=== PATIENT | female | born 1990 | race Caucasian/White ===

== ENCOUNTER 2020-10-13 17:01 | Outpatient (CLI) | payer OTHER, SELFPAY ==
[2020-10-13 19:35] LABS: Hemoglobin A1C 4.8 % (<5.7)
[2020-10-16 06:13] LABS: FSH 5.1 mIU/mL (***); LH 9.4 mIU/mL (***); Progesterone <0.2 ng/mL (***); Prolactin 13.6 ng/mL (***)
[2020-10-16 09:38] LABS: Testosterone Total 63 ng/dL (2-45)
[2020-10-16 18:17] LABS: Sex Hormone Binding Globulin 21 nmol/L (17-124)
[2020-10-18 23:06] LABS: Estradiol, Ultrasensitive 54 pg/mL
== END 2020-10-13 17:02 | disposition home or self-care (01) ==
LOC: ANHLAB 17:06
PROVIDERS: Visit Provider Obstetrics & Gynecology
DX: L68.0 Hirsutism (principal)
CPT/HCPCS: 36415; 82670; 83001; 83002; 83036; 84144; 84146; 84270; 84403; 84443

== ENCOUNTER 2022-04-23 10:50 | Emergency (ER) | payer OTHER, SELFPAY ==
--- NOTE | ~2022-04-23 | XR_ITS ---
XR foot LT min 3V DATE: 04/23/2022 11:46 INDICATION: Pain, tenderness to palpation over third metatarsal bone TECHNIQUE: 4 views COMPARISON: None FINDINGS: No fracture or dislocation, periosteal reaction or bone destruction. Joint spaces are prese rved. IMPRESSION: Negative Reviewed, dictated and finalized at location B. IMPRESSION: Negative
[2022-04-23 10:52] VITALS: BP 141/88; PULSE 90; RESP 16; TEMP 36.7; O2SAT 97
--- NOTE | 2022-04-23 11:23 | ED.LOWEXIN ---
HPI - Extremity Injury (Lower) General Chief Complaint: Extremity Injury, Lower Stated Complaint: L foot pain Time Seen by Provider: 04/23/22 11:14 History of Present Illness HPI Narrative: Patient is a 32-year-old female here for evaluation of atraumatic left foot pain over the past day. Patient states the pain started yesterday as a dull ache, and today became sharp and shooting. Pain is there all the time but is worse with movement of the foot and bearing weight. denies any trauma to the area or increased exertion recently. She has been walking on the foot with moderate pain. she denies any numbness or tingling in her foot. She has taken ibuprofen with mild relief of her symptoms. Denies any nausea, vomiting, fevers, chills. Related Data Allergies Allergy/AdvReac Type Severity Reaction Status Date / Time No Known Allergies Allergy Verified 04/23/22 10:55 Review of Systems Review of Systems: Gen: Denies fevers or chills Eyes: Denies eye pain or visual change ENT: Denies congestion Respiratory: Denies shortness of breath or cough CV: Denies chest pain or palpitations GI: Denies abdominal pain nausea, emesis or diarrhea denies burning, urgency, frequency or hematuria Musculoskeletal: Reports left foot pain. Neuro: Denies numbness, tingling, weakness or focal weakness Skin: Denies rash Except as documented, all other systems reviewed and negative [facility] Family History Family History (Updated 04/13/16 @ 23:19 by DOCTOR UNKNOWN) Father Family history of diabetes mellitus in first degree relative Mother Family history of malignant neoplasm of breast in first degree relative Social History Social History Smoking status: Never smoker Alcohol intake: never Exam Narrative: APPEARANCE: Well appearing, no pain in distress, well-nourished. Head: Normocephalic and atraumatic. EYES: PERRLA/EOMI, conjunctivae clear NOSE: No nasal drainage EARS: External ear normal in appearance THROAT: Oropharynx is clear. Mucous membranes are moist. NECK: Supple. No adenopathy, no masses. RESPIRATORY: Airway patent, respirations nonlabored. Clear to auscultation bilaterally, no rales, rhonchi, wheezing. CARDIOVASCULAR: 2+ DP and PT pulses. regular rate and rhythm without murmurs, rubs, or gallops. ABDOMINAL: Normoactive bowel sounds. Soft, nontender, nondistended. No rebound tenderness or guarding. MUSCULOSKELETAL: Mild amount of bruising over her left anterior ankle. She is tender to palpation over the distal second and third metatarsals. She has full range of motion in the foot, but does note pain with plantar flexion against resistance. No bony tenderness over left knee; FROM in left knee. No edema. NEURO: Normal speech. No focal neurologic deficits. SKIN: Skin is warm and dry. No rashes. PSYCHIATRIC: Normal affect/mood. Course Vital Signs Vital signs: Vital Signs Temperature 98.1 F 04/23/22 10:52 Pulse Rate 90 04/23/22 10:52 Respiratory Rate 16 04/23/22 10:52 Blood Pressure 141/88 H 04/23/22 10:52 Pulse Oximetry 97 04/23/22 10:52 Oxygen Delivery Room Air 04/23/22 10:52 Temperature 98.1 F 04/23/22 10:52 Pulse Rate 90 04/23/22 10:52 Respiratory Rate 16 04/23/22 10:52 Blood Pressure 141/88 H 04/23/22 10:52 Pulse Oximetry 97 04/23/22 10:52 Oxygen Delivery Room Air 04/23/22 10:52 MDM - Extremity Injury (Lower) MDM Narrative Medical decision making narrative: 32-year-old female here for evaluation of atraumatic left foot pain for the past several days. No obvious deformity on exam, tender to palpation over distal 2nd-3rd metatarsals. No pain with passive range of motion to suggest septic arthritis. No calf pain, leg swelling or tenderness to suggest DVT; wells low risk. Location of pain and history not consistent with gout. Plain films of the foot negative. Her pain improved after Tylenol and ibuprofen. Encouraged to follow-up with her PCP this week for further evaluat
== END 2022-04-23 13:21 | disposition home or self-care (01) ==
PROVIDERS: Emergency Provider Emergency Medicine
DX: M79.672 Pain in left foot (principal)
CPT/HCPCS: 73630; 99283

== ENCOUNTER 2022-08-12 18:17 | Emergency (ER) | payer OTHER, SELFPAY ==
[2022-08-12 18:24] VITALS: BP 124/61; PULSE 99; RESP 16; TEMP 37.1; O2SAT 96
--- NOTE | 2022-08-12 18:51 | ED.URI ---
HPI - URI/Sore Throat General Chief Complaint: Upper Respiratory Infection Stated Complaint: fever congestion runny nose Source: patient Mode of arrival: ambulatory Limitations: no limitations History of Present Illness HPI Narrative: 32-year-old female presents to [facility] with complaints of cough, congestion, runny nose intermittent fevers for the past 2 days. Patient reports that her son recently started with similar symptoms. Patient denies shortness of breath, wheezing, nausea, vomiting, diarrhea, ear pain or sore throat. The patient is a nonsmoker. Patient denies recent travel MD elicited complaint: fever, cough, rhinorrhea and nasal congestion Onset (ago): day(s) (2) Severity: mild Able to tolerate fluids by mouth: Yes Context: sick contacts Treatments prior to arrival: ibuprofen Related Data Allergies Allergy/AdvReac Type Severity Reaction Status Date / Time No Known Allergies Allergy Verified 04/23/22 10:55 Review of Systems Constitutional: Constitutional: Reports chills, Denies fatigue and Reports fever(s) ENT: Denies vertigo and Denies dizziness Cardiovascular: Cardiovascular: Denies chest pain Respiratory: Respiratory: Reports cough, Denies dyspnea and Denies wheezing Gastrointestinal: Gastrointestinal: Denies diarrhea, Denies nausea and Denies vomiting Musculoskeletal: Musculoskeletal: Denies arthralgias and Denies joint swelling Integumentary/Breasts: Skin/Breast: Denies rash Neurologic: Denies dizziness and Denies syncope Allergic/Immunologic: Allergic/Immunologic: Denies throat swelling, Denies tongue swelling and Denies wheezing [facility] Family History Family History Father Family history of diabetes mellitus in first degree relative Mother Family history of malignant neoplasm of breast in first degree relative Social History Social History Smoking status: Never smoker Alcohol intake: never Comments At time of signature, I agree with nursing past medical, surgical, social and family history. There is no relevant family history pertinent to the presenting complaint. Exam Const: General: healthy appearing, no acute distress and alert Nutritional Appearance: well nourished Orientation/consciousness: patient oriented x3 Limitations: no limitations HENMT: Head: normal to inspection Ears: external ears normal and TM's normal bilaterally Face/Nose/Sinus: Normal external nose present and Normal nares present Face and sinus: normal facial exam Mouth: Yes Normal oral and palatal mucosa present, Yes lip normal and Yes moist mucous membranes Teeth and gingiva: dentition normal Throat: posterior oropharynx normal and uvula midline Eyes: Conjunctivae: conjunctivae normal Neck: Neck: normal visual inspection and no lymphadenopathy Resp: Effort & Inspection: normal respiratory effort and not labored Auscultation: clear to auscultation bilaterally, no crackles, no rales and no rhonchi Cardio: Rate: regular rate Rhythm: regular rhythm Heart sounds: no murmurs Skin: General skin exam: normal color Rashes: no rashes Neuro: General: patient oriented x3 Speech: normal speech Gait exam (Neuro): Normal gait present Psych: Affect: normal affect Attitude: cooperative Course Course Level of Care: Express Care Visit Vital Signs Vital signs: Vital Signs Temperature 37.1 C 08/12/22 18:24 Pulse Rate 99 08/12/22 18:24 Respiratory Rate 16 08/12/22 18:24 Blood Pressure 124/61 08/12/22 18:24 Pulse Oximetry 96 08/12/22 18:24 Oxygen Delivery Room Air 08/12/22 18:24 Temperature 37.1 C 08/12/22 18:24 Pulse Rate 99 08/12/22 18:24 Respiratory Rate 16 08/12/22 18:24 Blood Pressure 124/61 08/12/22 18:24 Pulse Oximetry 96 08/12/22 18:24 Oxygen Delivery Room Air 08/12/22 18:24 MDM - URI/Sore Throat MDM Narrative Medical decision making
== END 2022-08-12 19:00 | disposition home or self-care (01) ==
PROVIDERS: Emergency Provider Nurse Practitioner Family
DX: J10.1 Influenza due to other identified influenza virus with other respiratory manifestations (principal)
CPT/HCPCS: 87804; 99213; G0463

== ENCOUNTER 2023-01-23 14:11 | Outpatient (CLI) | payer OTHER, SELFPAY | END 2023-01-23 14:12 | disposition home or self-care (01) | LOC: ANHSURGERY 14:14 | PROVIDERS: Visit Provider Obstetrics & Gynecology | DX: N92.0 Excessive and frequent menstruation with regular cycle (principal) | CPT/HCPCS: 36415; 86850; 86900; 86901 ==

== ENCOUNTER 2023-01-30 00:23 | Day surgery (SDC) | payer OTHER, SELFPAY ==
[2023-01-22 13:40] VITALS: BMI 34.4
--- NOTE | 2023-01-22 13:43 | PC.NURSE ---
Report to the Outpatient Waiting Room, entrance under the green pavilion located off [facility], at time 6:00 on date 01/30/23. Planned Procedure Time: 7:30. Time changes happen often and if your time is changed the preop area will call you the afternoon before. - You and your visitor will be asked to self-screen and do not enter if you have any COVID symptoms. - A mask is optional within the hospital at this time. Patients may have clear liquids (water, carbonated beverages, clear teas, apple juice) until 3 hours prior to surgery (4:30) with a maximum of 20 ounces. - No food from midnight until time of surgery Take the following medications with a SIP of water the morning of surgery: NONE DO NOT STOP ANY OF YOUR OTHER PRESCRIPTION MEDICATIONS PRIOR TO SURGERY EXCEPT THE FOLLOWING Medications to discontinue per physician: N/A Date to take last dose: N/A Please no make-up, nail azerbaijani, hairspray, perfume, deodorant, or body powder the day of surgery. No jewelry (including any body piercings) or valuables the day of surgery, leave them at home. Please take a shower or bath the night before, or the morning of, surgery with an antibacterial soap. Wear comfortable, loose fitting clothing. - Jewelry must be removed prior to entering the operating room. Rings and piercings that are not removed may be cut off. - The hospital will not accept responsibility for valuables. - Please leave all valuables, including medications, at home the day of surgery. If you are going home after surgery, a licensed coach tour driver must drive you home. - NO public transportation without another adult if you receive anesthesia. - We recommend that an adult stay with you for 24 hours following discharge. - We also recommend that you do not drive, make important decision, drink alcoholic beverages, or take any drugs that were not prescribed by your health care provider for at least 24 hours after your discharge time. Follow any additional instructions given to you from your surgeon. If you or anyone in your household have experienced Covid symptoms in the past week, please notify your surgeon or the nurse liaison at the phone number below for possible testing. Telephone instructions given to PT - ENRIQUE LOPEZ and asked if any additional questions and then verbalized understanding. Patient advised to call surgeon office or pre surgery nurse liaison [phone] if any additional questions.
--- NOTE | 2023-01-29 13:44 | WPDANESEPPF ---
Anes - Initial Pre Proc Eval Procedure: Operation Date: 01/30/23 08:15 Proposed Procedures p Total Laparoscopic Hysterectomy with Bilateral Salpingectomy - Roberto Rm MD Date/Time: 01/29/23 13:44 Surgeon: Roberto Rm MD Pre Op Diagnosis: menorrhagia Patient Data Age: 33 Gender: F Height: 1.7 m Weight: 99.8 kg Allergies Allergy/AdvReac Type Severity Reaction Status Date / Time No Known Allergies Allergy Verified 01/30/23 06:13 Home Medications Medication Instructions Recorded Confirmed Type sertraline 50 mg tablet 50 mg PO HS 01/22/23 01/22/23 History spironolactone 100 mg tablet 100 mg PO HS PCOS 01/22/23 01/22/23 History Patient hx anesthesia problems: none Family hx anesthesia problems: none Results Review: All pre-operative results and documents have been reviewed as part of the pre-operative evaluation. [facility] Past Medical History Medical History (Updated 01/29/23 @ 13:50 by Davonte Lennon MD) Abnormal uterine bleeding Anxiety Depression Obesity Family History Family History Father Family history of diabetes mellitus in first degree relative Mother Family history of malignant neoplasm of breast in first degree relative Social History Social History Smoking status: Never smoker Alcohol intake: never Substance use: never Substance use type: does not use Living arrangements: with family Spiritual care concerns: No Anes - Eval Final PreProcedure Day of Procedure 01/29/23 13:44 Patient weight: obese Heart: regular rate and rhythm Lungs: clear to auscultation and normal air movement Airway: Mallampati scale class II Neurological: alert and oriented Last oral intake: >/= 8 hours ASA classification: II Emergent: no Anesthetic plan: proceed Anesthesia type and monitoring: general ETT Results Review: All pre-operative results and documents have been reviewed as part of the pre-operative evaluation. Informed Consent: The patient's anesthetic plan and its attendant risks and benefits were discussed with the patient/family/POA. Questions were solicited and answers provided to the satisfaction of the patient/family/POA.
[2023-01-30] VITALS (9 sets, daily range): BP systolic 113–139; BP diastolic 56–90; PULSE 67–105; RESP 12–18; TEMP 36.4–37.3; O2SAT 94–100; BMI 33.7
[2023-01-30] MEDS: LACTATED RINGERS 1,000 ML 30 ML IV CONT ×2 (06:35→10:17)
[2023-01-30] MEDS: KETOROLAC 15 MG/ML VIAL (*BKC) IV PUSH (06:43)
[2023-01-30] MEDS: ACETAMINOPHEN 500 MG TABLET 1000 MG PO (06:43)
--- NOTE | 2023-01-30 07:12 | WPDHPUPDATE1 ---
History and Physical Update Update Date/Time: 01/30/23 07:12 History and Physical has been reviewed, including an updated exam of the patient. There are NO changes in the patient's condition. Risks, benefits, and alternatives have been discussed and questions answered. Patient agrees to proceed with procedure.
[2023-01-30] MEDS: ceFAZolin 2 GM/D5W 50 ML 2 GM/50 ML BAG IVPB (08:23)
[2023-01-30] MEDS: ceFAZolin SODIUM 1 GM VIAL (09:01)
--- NOTE | 2023-01-30 10:05 | P.OP_ITS ---
Procedure Note - Detailed Date of Procedure 01/30/23 Pre-op Diagnosis menorrhagia Post-op Diagnosis Same Procedure Performed Total laparoscopic hysterectomy. Surgeon Roberto Rm MD Anesthesia General Indications Menorrhagia, dysmenorrhea Findings Normal-appearing pelvic anatomy with mildly enlarged uterus, normal-appearing ovaries and tubes. Description of Procedure This patient was taken to the operating room. She was prepped and draped in the dorsal lithotomy position after induction of general anesthesia. The uterine manipulator and Kerline cup were placed. This was done with a speculum and tenaculum. The speculum was placed. The cervix was grasped with a tenaculum. The stay sutures were placed at 3 and 9:00 a.m.. The stay sutures of 0 Vicryl were brought through the appropriately sized Kerline cup. The tip of the HANSA manipulator was placed in the intrauterine cavity. The cup was slid into place around the cervix and into the fornices. It was locked into place. The sutures were then wrapped around the handle and tied under tension. A 5 mm skin incision was made in the left upper quadrant the abdomen. A 5 mm trocar was inserted into the intrauterine cavity under direct visualization of the scope. Pneumoperitoneum was achieved. A left lower quadrant 11 mm incision was made with scalpel. An 11 mm trocar was inserted into the anterior abdominal cavity under direct visualization the scope. A 5 mm infraumbilical incision was made with a scalpel and a 5 mm trocar was inserted the intra-abdominal cavity under direct visualization of the scope. Bilateral ureteral lysis was performed. This was done from the pelvic brim down to the uterine artery. This was done with careful dissection using sharp and blunt dissection. The fallopian tubes were removed bilaterally. The me sosalpinx around the fallopian tubes were cauterized transected with LigaSure cautery. This was done in a bilateral fashion from the ovary to the uterine cornua. The fallopian tube was transected at the uterine cornu and amputated. The tube was taken out the left lower quadrant trocar site. In a stepwise fashion along the lateral aspects of the uterus the round ligament and broad ligaments were cauterized transected down to the level of the uterine arteries. A bladder flap was created in the bladder was moved distally to the end of the cervix and over the Kerline cup. The bilateral uterine arteries were cauterized and transected. Colpotomy was then performed. In a circumferential fashion the vagina was transected using unipolar cautery. The incision was made down on the Kerline cup. The uterus and cervix were taken out through the vagina. A pneumo occluder was placed in the vagina. The vaginal cuff was closed with a 0 V lock suture in a running fashion. The pelvis was irrigated with copious amounts antibiotic irrigation. The ureters were again examined and found to be intact and flowing freely under the uterine arteries into the bladder. The bladder was intact. It was examined directly. The vagina was irrigated with Betadine solution after removal of the Pneumo occluder. The patient was taken to recovery room. She was stable condition. Sponge lap and needle counts were correct x2. Estimated Blood Loss 50 Drains Yes Packing No Pathology Yes Complications No immediate complications Condition Stable Disposition Floor
[2023-01-30] MEDS: fentaNYL CITRATE INJ (*CRX) 100 MCG/2 ML VIAL 25 MCG IV PUSH ×4 (10:28→10:43)
--- NOTE | 2023-01-30 11:05 | ADMGEN ---
This patient, Chery Diaz, was admitted to OB 2nd Floor Room 289-00. Patient/family oriented to hospital policies and general routines including ID bracelet, bed and alarms, visiting hours, pain management, procedures, bathroom and other care routines, personal items, smoking policy, room service/diet, and visiting hours. Information on how to activate the Rapid Response Team has been discussed. Patient/Family are encouraged to report perceived risks to care and to ask questions if they do not understand what they are told or what they should do.
[2023-01-30] MEDS: DEXTROSE 5%/0.45% SOD CHL 1,000 ML 125 ML IV CONT (11:36)
[2023-01-30] MEDS: KETOROLAC 30 MG/ML VIAL (*BKC) IV PUSH (12:19)
[2023-01-30] MEDS: HYDROcodone/acetaminophen (*CRX) 10-325 MG TABLET 1 TAB PO ×2 (13:02→20:32)
[2023-01-30] MEDS: HYDROcodone/acetaminophen (*CRX) 5-325 MG TABLET 1 TAB PO (16:36)
[2023-01-30] MEDS: IBUPROFEN 600 MG TABLET PO (19:20)
[2023-01-30] MEDS: SPIRONOLACTONE 50 MG TABLET 100 MG PO (20:32)
[2023-01-30] MEDS: SERTRALINE HCL 50 MG TABLET PO (20:32)
[2023-01-31 04:00] VITALS: BP 102/61; PULSE 99; RESP 16; TEMP 36.4; O2SAT 95
[2023-01-31] MEDS: IBUPROFEN 600 MG TABLET PO (04:00)
[2023-01-31] MEDS: HYDROcodone/acetaminophen (*CRX) 5-325 MG TABLET 1 TAB PO ×2 (04:00→07:30)
[2023-01-31 05:10] LABS: Basophils Percent Auto 0.1 % (0.2-1.2); Hematocrit 40.7 % (37.0-47.0); Hemoglobin 13.6 g/dL (12.0-15.0); Immature Granulocyte Absolute 0.14 K/mm3 (0.00-0.031); Immature Granulocyte Percent A 0.7 % (0-0.5); Lymphocytes Absolute Auto 2.28 K/mm3 (0.9-3.2); Lymphocytes Percent Auto 11.2 % (18.3-44.2); Mean Corpuscular HGB Conc 33.4 g/dl (32-36); Mean Corpuscular Hemoglobin 29.8 pg (26-34); Mean Corpuscular Volume 89.3 fl (80-100); Mean Platelet Volume 9.9 fl (7.4-10.4); Monocytes Absolute Auto 0.9 K/mm3 (0.1-0.6); Monocytes Percent Auto 4.6 % (2.6-8.5); Neutrophils Absolute Auto 16.9 K/mm3 (1.3-6.7); Neutrophils Percent Auto 83.4 % (45.5-73.1); Platelet Count Result 329 k/mm3 (150-375); Red Blood Count 4.56 M/mm3 (4.2-5.4); Red Cell Distribution Width 12.7 % (11.5-14.5); White Blood Count 20.3 K/mm3 (4.5-10.0)
--- NOTE | 2023-01-31 08:04 | PM.GYNPNOP ---
DIRECTOR FAMILY - A/P Postoperative Procedures: Procedures Operation Date: 01/30/23 08:15 Actual Procedure Side Surgeon p Total Laparoscopic Hysterectomy with Bilateral Salpingectomy Bilateral Roberto Rm MD Postoperative day: 1 Postoperative status: doing well Postoperative plan: see orders Time Spent With Patient Time: Total time spent is greater than 50% in coordination of care (as documented) at patient's floor/unit and/or counseling patient: Time with patient: less than 15 minutes DIRECTOR FAMILY- PN:Subj Post-Op Subjective Date/time seen: 01/31/23 08:04 Subjective: patient reports feeling better, patient has no complaints and pain is well controlled Exam Const: General: healthy appearing, comfortable and no acute distress Resp: Auscultation: clear to auscultation bilaterally, no rales, no rhonchi and no wheezes Cardio: Rate: regular rate Heart sounds: no click, no murmurs and no rubs GI: Inspection: non-distended Auscultation: normal bowel sounds Extrem: General: normal to inspection, no pedal edema and no calf tenderness DIRECTOR FAMILY - PN: Obj Data Vital Signs Vital Signs: Vital Signs - 24 hr 01/30/23 10:09 01/30/23 10:20 01/30/23 10:35 Temperature 99.2 F 98.4 F Pulse Rate 77 72 73 Respiratory Rate 16 18 12 Blood Pressure 117/90 129/82 125/80 Pulse Oximetry 96 100 95 Oxygen Delivery Simple Face Mask Simple Face Mask Room Air Oxygen Flow Rate 10 10 01/30/23 10:50 01/30/23 11:30 01/30/23 11:05 Temperature 98.3 F Pulse Rate 72 75 Respiratory Rate 15 18 Blood Pressure 119/72 123/79 Pulse Oximetry 94 98 Oxygen Delivery Room Air Room Air Oxygen Flow Rate 01/30/23 15:20 01/30/23 15:20 01/30/23 19:15 Temperature 98.2 F 98.7 F Pulse Rate 91 97 Respiratory Rate 16 16 Blood Pressure 113/78 137/80 Pulse Oximetry 96 97 Oxygen Delivery Room Air Oxygen Flow Rate 01/30/23 19:15 01/30/23 23:30 01/30/23 23:30 Temperature 98.7 F Pulse Rate 97 105 H 105 H Respiratory Rate 16 16 16 Blood Pressure 117/56 L Pulse Oximetry 97 96 96 Oxygen Delivery Room Air Room Air Oxygen Flow Rate 01/31/23 04:00 01/31/23 04:00 Temperature 97.6 F Pulse Rate 99 99 Respiratory Rate 16 16 Blood Pressure 102/61 Pulse Oximetry 95 95 Oxygen Delivery Room Air Oxygen Flow Rate Intake/Output Intake/Output: Intake & Output 01/28/23 01/29/23 01/30/23 01/31/23 23:59 23:59 23:59 23:59 Intake Total 2050 Output Total 1610 Balance 440 Meds/Results Medications: Active Medications Generic Name Dose Route Start Last Admin Trade Name Freq PRN Reason Stop Dose Admin Hydrocodone Bitart/Acetaminophen 1 tab 01/30/23 11:02 01/30/23 20:32 Hydrocodone/Acetaminophen (*Crx) 10-325 Mg Tablet PO 1 tab Q3H PRN Administration Pain Rated 6 or Greater Hydrocodone Bitart/Acetaminophen 1 tab 01/30/23 11:02 01/31/23 07:30 Hydrocodone/Acetaminophen (*Crx) 5-325 Mg Tablet PO 1 tab Q3H PRN Administration Pain Rated 5 or Less Ibuprofen 600 mg 01/30/23 11:02 01/31/23 04:00 Ibuprofen 600 Mg Tablet PO 600 mg Q6H PRN Administration Cramping Ketorolac Tromethamine 30 mg 01/30/23 11:02 01/30/23 12:19 Ketorolac 30 Mg/Ml Vial (*Bkc) IV PUSH 02/04/23 11:01 30 mg Q6H PRN Administration Pain Rated 4-6 Naloxone HCl 0.1 mg 01/30/23 11:02 Naloxone Hcl 0.4 Mg/Ml Vial IV PUSH Q2M PRN Respiratory rate less than 10 Ondansetron HCl 4 mg 01/30/23 11:02 Ondansetron Inj 4 Mg/2 Ml Vial IV PUSH Q6H PRN Nausea And Vomiting Sertraline HCl 50 mg 01/30/23 21:00 01/30/23 20:32 Sertraline Hcl 50 Mg Tablet PO 50 mg HS VIKKI Administration Spironolactone 100 mg 01/30/23 21:00 01/30/23 20:32 Spironolactone 50 Mg Tablet PO 100 mg HS VIKKI Administration Labs 01/31/23 04:07 Labs: Laboratory Results - last 24 hr 01/31/23 04:07 WBC 20.3 H RBC 4.56 Hgb 13.6 Hct 40.7 MCV 89.3 MCH
[2023-01-31 08:35] VITALS: BP 123/68; PULSE 92; RESP 18; TEMP 36.6; O2SAT 98
== END 2023-01-31 10:05 | disposition home or self-care (01) ==
LOC: ANHSURGERY 05:55 → ANHOB2 11:08
PROVIDERS: Visit Provider Obstetrics & Gynecology
PROC: 0UT9FZZ Resection of Uterus, Via Natural or Artificial Opening With Percutaneous Endoscopic Assistance (ICD-10-PCS; CPT 58571; principal; 2023-01-30 08:15)
DX: N92.0 Excessive and frequent menstruation with regular cycle (principal); N80.30 Endometriosis of pelvic peritoneum, unspecified; N83.8 Other noninflammatory disorders of ovary, fallopian tube and broad ligament
CPT/HCPCS: 58571; 36415; 85025; 88305; 88307; 99199; A9270; J0330; J0690; J1100; J1885; J2250; J2405; J2704; J2710; J3010; J7030; J7120